=== PATIENT | female | born 1950 | race Caucasian/White ===

== ENCOUNTER 2022-10-01 16:28 | Inpatient (IN) | payer MEDICARE, OTHER ==
[~2022-10-01] VITALS: Ht 162.6 cm; Wt 81.8 kg
[2022-10-01 17:10] LABS: BASOPHILS # (AUTO) 0.1 X10'3 (0-0.2); BASOPHILS % (AUTO) 0.8 % (0-1); EOSINOPHILS # (AUTO) 0.3 X10'3 (0-0.9); EOSINOPHILS % (AUTO) 3.7 % (0-6); HEMATOCRIT 44.8 % (35.0-45.0); HEMOGLOBIN 15.3 g/dl (12.0-16.0); LYMPHOCYTES # (AUTO) 2.5 X10'3 (1.1-4.8); LYMPHOCYTES % (AUTO) 33.9 % (21-51); MEAN CORPUSCULAR HEMOGLOBIN 32.9 PG (27.0-31.0); MEAN CORPUSCULAR HGB CONC 34.1 g/dL (33.0-36.5); MEAN CORPUSCULAR VOLUME 96.5 FL (78-98); MEAN PLATELET VOLUME 9.9 FL (7.4-10.4); MONOCYTES # (AUTO) 0.6 X10'3 (0-0.9); MONOCYTES % (AUTO) 8.6 % (2-12); NEUTROPHILS # (AUTO) 3.9 X10'3 (1.8-7.7); PLATELET COUNT 223 X10'3 (140-440); RED BLOOD COUNT 4.65 X10'6 (4.20-5.60); RED CELL DISTRIBUTION WIDTH 13.3 % (11.5-14.5); WHITE BLOOD COUNT 7.4 X10'3 (4.5-11.0)
[2022-10-01] MEDS ORDERED: iohexol 350MG/ML 100ml bottle IV ONE (17:15)
[2022-10-01 17:22] LABS: APTT 24 SECONDS (22-32)
[2022-10-01 17:23] LABS: ALANINE AMINOTRANSFERASE 27 U/L (12-78); ALBUMIN 3.8 G/DL (3.4-5.0); ALKALINE PHOSPHATASE 121 IU/L (46-116); ANION GAP 9 (8-16); ASPARTATE AMINO TRANSFERASE 21 U/L (10-37); BILIRUBIN,TOTAL 0.4 MG/DL (0.1-1.0); BLOOD UREA NITROGEN 10 MG/DL (7-18); BUN/CREATININE RATIO 14.1 (10.0-20.0); CALCIUM 9.3 MG/DL (8.5-10.1); CHLORIDE 106 MMOL/L (99-107); CREATININE 0.71 MG/DL (0.40-0.90); GLUCOSE 336 MG/DL (70-104); POTASSIUM 4.1 MMOL/L (3.5-5.1); SODIUM 140 MMOL/L (135-145); TOTAL CARBON DIOXIDE 25.4 MMOL/L (24-32); TOTAL PROTEIN 7.7 G/DL (6.4-8.2); eGFR 81 ML/MIN
--- NOTE | 2022-10-01 17:46 | NUR ---
Stroke nurse to pt bedside at this time
--- NOTE | 2022-10-01 17:52 | NUR ---
Teleneurologist to pt bedside for evaluation at this time; Stroke nurse and family present at bedside
[2022-10-01] MEDS ORDERED: normal saline 1000ml 1,000 ML IV ONE (20:30)
[2022-10-01] MEDS ORDERED: clopidogrel 300mg tablet PO ONE (21:05)
[2022-10-01] MEDS ORDERED: aspirin 81mg tab.chew PO ONE (21:05)
[2022-10-01] MEDS ORDERED: PERFLUTREN PROTEIN-A MICROSPHR (Optison) 0.22 MG/ML 3ML VIAL IV ONE (21:10)
[2022-10-01] MEDS ORDERED: LORazepam 2 mg/ml vial IV PRN (21:30)
[2022-10-01 21:42] LABS: HEMOGLOBIN A1C 10.5 % (4.5-6.2)
[2022-10-01] MEDS: normal saline 1000ml 1,000 ML IV SCH (23:12)
[2022-10-02 03:10] LABS: CHOL/HDL RATIO 7.6 (0.00-4.99); CHOLESTEROL 244 MG/DL (0-200); HDL CHOLESTEROL 32 MG/DL (35-60); LDL CHOLESTEROL 151 MG/DL (50-100); TRIGLYCERIDES 252 MG/DL (20-135)
[2022-10-02] MEDS ORDERED: atorvastatin 20mg tablet PO SCH (08:00)
[2022-10-02] MEDS ORDERED: enoxaparin 40mg/0.4ml syringe SQ SCH (08:00)
[2022-10-02] MEDS ORDERED: aspirin 81mg, enteric-coated 1 TAB TABLET.DR PO SCH (08:00)
[2022-10-02] MEDS ORDERED: clopidogrel 75mg tablet PO SCH (08:00)
[2022-10-02] MEDS ORDERED: LORazepam 2 mg/ml vial IV PRN (09:45)
[2022-10-02] MEDS ORDERED: dextrose 50%-water 50ml dispensing syringe IV PRN ×2 (10:55)
[2022-10-02] MEDS ORDERED: insulin Lispro (HumaLOG) vial - multi-dose SQ SCH (10:55)
[2022-10-02] MEDS ORDERED: glucagon, human recombinant 1mg kit SUBCUT PRN (10:55)
[2022-10-02] MEDS ORDERED: MESSAGE TO PHARMACY PO ONE (10:55)
[2022-10-02] MEDS ORDERED: DEXTROSE 15 GM of carb/4 tabs (each vial/BOTTLE has 4 tablets) PO PRN ×2 (10:55)
[2022-10-02] MEDS: normal saline 1000ml 1,000 ML IV SCH (11:28)
[2022-10-02] MEDS ORDERED: NO HOME MEDS (12:48)
[2022-10-02 17:33] VITALS: BP 136/74
[2022-10-02] MEDS ORDERED: LISI5TAB22 PO (18:08)
[2022-10-02] MEDS ORDERED: ASPI-1071 PO (18:08)
[2022-10-02] MEDS ORDERED: ATOR20TA66 PO (18:08)
[2022-10-02] MEDS ORDERED: CLOP75TA34 PO (18:08)
[2022-10-02] MEDS ORDERED: insulin glargine (Lantus) pen - multi-dose SQ SCH (21:00)
== END 2022-10-02 19:00 | disposition home or self-care (01) | DRG 66 ==
LOC: ER 16:29 → ED HOLD 21:14
PROVIDERS: ADMIT Internal Medicine; ATTEND Internal Medicine
PROC: B3251ZZ Computerized Tomography (CT Scan) of Bilateral Common Carotid Arteries using Low Osmolar Contrast (ICD-10-PCS; principal; 2022-10-01)
PROC: B32G1ZZ Computerized Tomography (CT Scan) of Bilateral Vertebral Arteries using Low Osmolar Contrast (ICD-10-PCS; 2022-10-01)
PROC: B32R1ZZ Computerized Tomography (CT Scan) of Intracranial Arteries using Low Osmolar Contrast (ICD-10-PCS; 2022-10-01)
PROC: B3281ZZ Computerized Tomography (CT Scan) of Bilateral Internal Carotid Arteries using Low Osmolar Contrast (ICD-10-PCS; 2022-10-01)
DX: I63.89 Other cerebral infarction (principal); E11.9 Type 2 diabetes mellitus without complications; R29.700 NIHSS score 0; R03.0 Elevated blood-pressure reading, without diagnosis of hypertension; E78.5 Hyperlipidemia, unspecified; G83.24 Monoplegia of upper limb affecting left nondominant side; Z79.02 Long term (current) use of antithrombotics/antiplatelets; Z85.44 Personal history of malignant neoplasm of other female genital organs; Z87.891 Personal history of nicotine dependence
CPT/HCPCS: 36415; 70450; 70496; 70498; 70551; 71045; 73110; 80053; 80061; 82948; 83036; 84484; 85025; 85610; 85730; 92508; 92616; 93306; 97110; 97161; 99285; G0378; J1650; J1815; J2060; J3490; J7030; Q9967